=== PATIENT | male | born 1960 | race Caucasian/White ===

== ENCOUNTER 2017-04-11 21:12 | Emergency (ER) | payer OTHER ==
--- NOTE | 2017-04-11 22:08 | DIAGNOSTIC IMAGING REPORT ---
PROCEDURE: XR CERVICAL SPINE 2 OR 3 VIEW INDICATION: NECK TRAUMA/INJURY TECHNIQUE: Three views. COMPARISON: None. FINDINGS: Status post C4-5 anterior discectomy and fusion. Moderate degenerative changes of the C3-4, C4-5, C5-6 disc levels with anterior posterior osteophytes. No evidence of acute process or fracture. Left carotid vascular calcification. IMPRESSION: 1. Status post C4-5 anterior discectomy and fusion. 2. Moderate degenerative changes of the cervical spine. 3. Left carotid vascular calcification. 4. No evidence of acute process.
--- NOTE | 2017-04-11 22:29 | ED ORDER SUMMARY ---
..... Patient: FADUMO NOGUEIRA OrderSheet [facility] VisitID: [id number] [address] [place] [address] 57y, M Registration Date/Time: 04/11/2017 ORDER SHEET Weight: 104.3 kg (stated) Allergies: IV Contrast, Vicodin GENERAL ORDERS: Cervical Spine 2 or 3V Urgent (21:47 04/11/2017 Santos Morris) (21:53 Alexandria R.N.) Ice (21:47 04/11/2017 Santos Morris) (Ack 21:50 Alexandria R.N.) (21:53 Alexandria R.N.) MEDICATION ORDERS: IV FLUIDS: ORDER SHEET NOTES: [Electronically signed by Myra Dvais R.N. (22:37 04/11/2017)] [Electronically signed by Anjel Leigh Dr. (09:01 04/12/2017)] [Electronically locked/signed by Myra Davis R.N. (22:37 04/11/2017)]
--- NOTE | 2017-04-11 22:29 | ED NURSING NOTES ---
Clinical Report - Nurses [facility] [address] [place] [address] 04/11/2017 21:15 Patient: FADUMO NOGUEIRA TRIAGE Triage time 21:22. Chief Complaint: FALL while walking (pt states he fell through rotten boards on his deck at home and fell backwards, hitting his head). Alert. No acute distress. --21:31 Myra Davis R.N. 21:22 04/11/17. BP: 130/57. HR: 80. RR: 15 (regular and unlabored). O2 saturation: 94% on room air. Temp: 98.1 F (oral). Yanez-Larkin pain scale: 2/10. --21:31 Myra Davis R.N. Weight: 104.3 kg stated. Height/Length: 68 inches Per Patient. BMI: 35. --21:29 Myra Davis R.N. Medications Aspirin Oral (Tablet 81 mg) 1 tablet, q day. Gabapentin Oral (Capsule 300 mg) 4 tablets, 2x a day. HumuLIN N Subcutaneous 45 units q pm. Lisinopril Oral 40 mg, daily. MetFORMIN HCl Oral 1000 mg BID. Sertraline HCl Oral 100 mg, daily. TraZODone HCl Oral 50 mg, at bedtime. --21:26 Myra Davis R.N. Tamsulosin HCl Oral. --21:27 Myra Davis R.N. Atorvastatin Calcium Oral (Tablet 10 mg) 1/2 tablet, daily. --21:27 Myra Davis R.N. Pantoprazole Sodium Oral 40 mg, daily. --21:28 Myra Davis R.N. Percocet Oral (Tablet 5-325 mg) 4 tablets, daily as needed, neck pain. --21:29 Myra Davis R.N. Allergies IV Contrast. Vicodin. --21:26 Myra Davis R.N. History Arrived by private vehicle. Historian: patient. Accompanied by family. Primary physician (Marla ([facility])). This occurred today (at about 1930). 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 PAST MEDICAL HX: Tetanus status: up-to-date. Immunizations: up-to-date. SOCIAL HX: Never smoker. No alcohol use or drug use. NUTRITIONAL RISK ASSESSMENT: The nutritional risk assessment revealed no deficiencies. FUNCTIONAL ASSESSMENT: Functional assessment performed: independent with the activities of daily living; uses cane. --21:31 Myra Davis R.N. PHYSICAL ASSESSMENT Ambulatory to room. Patient gowned. GENERAL / NEURO / PSYCH: Alert. Oriented X 4. Appears in no acute distress. RESPIRATORY: Respirations not labored. SKIN: Skin is warm and dry. --21:31 Myra Davis R.N. NURSING PROGRESS NOTES Two patient identifiers checked. Call light placed in reach. Side rails up x 1. Bed placed in lowest position. Brakes of bed on. --21:31 Myra Davis R.N. Patient ready for evaluation- chart flagged. --21:31 Myra Davis R.N. 21:50. Cold pack applied to neck. --21:53 Myra Davis R.N. Patient transported to radiology by wheelchair with tech. --21:53 Myra Davis R.N. Patient returned from radiology by wheelchair with tech. --22:02 Myra Davis R.N. DISPOSITION / DISCHARGE Condition at departure: stable. No learning barriers present. Discharge instructions provided and reviewed with the patient. Patient verbalized understanding. Written instructions provided in Serbian. The patient was discharged home and accompanied by subassemblies wirer. He left the Emergency Department ambulatory and via private vehicle. Electric Crane Operator driving. --22:37 Myra Davis R.N. 22:36 04/11/17. BP: deferred. HR: deferred. RR: 15 (regular and unlabored). O2 saturation: deferred. Temp: deferred. Yanez-Larkin pain scale: 11/11. --22:37 Myra Davis R.N. Locked/Released at 04/11/2017 22:37 by Myra Davis R.N.
--- NOTE | 2017-04-11 22:29 | ED CLINICAL REPORT ---
Clinical Report - Physicians/Mid Levels [facility] [address] [place] [address] 04/11/2017 21:15 Patient: FADUMO NOGUEIRA Time Seen: 2140; initial patient contact. Arrived- By private vehicle. Historian- patient. HISTORY OF PRESENT ILLNESS Chief Complaint: INJURY TO HEAD and INJURY TO NECK. Location of injuries- head and neck. The injury occurred today. Fell (tripped while walking). Occurred at home. The patient complains of moderate pain. The patient sustained a blow to the head and complains of neck pain. No loss of consciousness or seizure. Not dazed. (no saddle anesthesia. No incontinence. No retention.). REVIEW OF SYSTEMS All systems otherwise negative, except as recorded above. PAST HISTORY See nurses notes. Tetanus immunization status is up-to-date. Medications: Percocet Oral (Tablet 5-325 mg) 4 tablets, daily as needed, neck pain. Pantoprazole Sodium Oral 40 mg, daily. Atorvastatin Calcium Oral (Tablet 10 mg) 1/2 tablet, daily. Tamsulosin HCl Oral. Aspirin Oral (Tablet 81 mg) 1 tablet, q day. Gabapentin Oral (Capsule 300 mg) 4 tablets, 2x a day. HumuLIN N Subcutaneous 45 units q pm. Lisinopril Oral 40 mg, daily. MetFORMIN HCl Oral 1000 mg BID. Sertraline HCl Oral 100 mg, daily. TraZODone HCl Oral 50 mg, at bedtime. Allergies: IV Contrast. Vicodin. SOCIAL HISTORY No alcohol use or drug use. No recent travel. Is a local resident. ADDITIONAL NOTES The nursing notes have been reviewed. PHYSICAL EXAM Vital Signs: 04/11/2017 21:22 BP: 130/57. HR: 80. RR: 15. O2 saturation: 94%. Temp: 98.1 F. Yanez-Larkin pain scale: 2/10. Blood pressure normal. Oxygen saturation normal. Appearance: Alert. No acute distress. Head: Head non-tender. No swelling of head. No Oneal's sign or raccoon eyes. Eyes: Pupils equal, round and reactive to light. Pupillary exam: Right pupil 3mm, round and reactive to light directly and consensually and with accommodation. Left pupil: 3mm, round and reactive to light directly and consensually and with accommodation. EOM intact. ENT: No dental injury. No hemotympanum. Pharynx normal. Neck: No decreased ROM or muscle spasm in the neck. No pain with movement of head/neck. Painless ROM. Neck non-tender. No vertebral tenderness. (no obvious surgical scar). CVS: Heart sounds normal. Pulses normal. Respiratory: Breath sounds normal. Chest nontender. Abdomen: Soft and nontender. No organomegaly. Back: No tenderness. ROM normal. No vertebral point tenderness. Skin: Skin intact. Skin warm and dry. Normal skin color. Normal skin turgor. Extremities: Normal inspection. Pelvis stable. Extremities atraumatic. Neuro: [place] Coma Scale: 15- eyes open spontaneously (4); best verbal response- oriented x 3 (5); best motor response- obeys commands (6). Oriented X 3. Mood/affect normal. Speech normal. No motor deficit. No sensory deficit. LABS, X-RAYS, AND EKG C-Spine X-rays: (PROCEDURE: XR CERVICAL SPINE 2 OR 3 VIEW INDICATION: NECK TRAUMA/INJURY TECHNIQUE: Three views. COMPARISON: None. FINDINGS: Status post C4-5 anterior discectomy and fusion. Moderate degenerative changes of the C3-4, C4-5, C5-6 disc levels with anterior posterior osteophytes. No evidence of acute process or fracture. Left carotid vascular calcification. IMPRESSION: 1. Status post C4-5 anterior discectomy and fusion. 2. Moderate degenerative changes of the cervical spine. 3. Left carotid vascular calcification.). The X-rays were independently viewed by me and interpreted by the radiologist. The X-rays were discussed with the radiologist (via pacs). PROGRESS AND PROCEDURES Course of Care: the patient is a 57-year-old male with past medical history significant for spinal fusion presented for evaluation of ground-level fall. Patient without any loss of consciousness. Do not feel CT scan of the head required at this time based on Nexus criteria. Patient is appropriate. patient is neuro intact. Patient will be evaluated for radiographs of the C-spine because of hardware. Pain medication has been offered. Patient is agreeable to Ice pack only. C-spine intact. Hardware intact. No other acute osseous abnormalities noted. Because of patient's negative radiographs and no neuro symptoms, feel the patient is stable outpatient candidate. Discussed with patient's workup here in the emergency department including diagnosis, home care, follow-up, and return precautions. All questions have been answered. The patient expressed understanding of these Instructions and was agreeable to them. Disposition: Discharged. Condition: good. CLINICAL IMPRESSION Acute neck pain associated with cervical sprain. 04/11/2017 21:22 BP: 130/57. HR: 80. RR: 15. O2 saturation: 94%. Temp: 98.1 F. Yanez-Larkin pain scale: 2/10. Blood pressure normal. Oxygen saturation normal. Single contusion to the head. INSTRUCTIONS Warnings: GENERAL WARNINGS: Return or contact your physician immediately if your condition worsens or changes unexpectedly, if not improving as expected, or if other problems arise. Specifically return if pain, vomiting, bleeding, breathing difficulty or fever. Your Current Medications: CONTINUE TAKING THE FOLLOWING MEDICATIONS: Aspirin Oral : Tablet 81 mg, 1 tablet q day. Atorvastatin Calcium Oral : Tablet 10 mg, 1/2 tablet daily. Gabapentin Oral : Capsule 300 mg, 4 tablets 2x a day. HumuLIN N Subcutaneous : 45 units q pm. Lisinopril Oral : 40 mg daily. MetFORMIN HCl Oral : 1000 mg BID. Pantoprazole Sodium Oral : 40 mg daily. Percocet Oral : Tablet 5-325 mg, 4 tablets daily, prn, neck pain. Sertraline HCl Oral : 100 mg daily. Tamsulosin HCl Oral. TraZODone HCl Oral : 50 mg at bedtime. OTC Medications: Motrin (available over the counter): take according to label instructions. Follow-up: Return to the emergency department as needed. Follow up with your doctor in three days. Reason for referral: recheck today's concerns. Summary of care provided to patient via paper. Screening today revealed the patient's blood pressure to be in the normal range. The patient should follow up with a primary care provider for blood pressure management. Understanding of the discharge instructions verbalized by patient. (Electronically signed by Anjel Leigh Dr. 04/12/2017 9:01)
--- NOTE | 2017-04-11 22:29 | ED ORDER SUMMARY ---
..... Patient: FADUMO NOGUEIRA OrderSheet [facility] VisitID: [id number] [address] [place] [address] 57y, M Registration Date/Time: 04/11/2017 ORDER SHEET Weight: 104.3 kg (stated) Allergies: IV Contrast, Vicodin GENERAL ORDERS: Cervical Spine 2 or 3V Urgent (21:47 04/11/2017 Santos Morris) (21:53 Alexandria R.N.) Ice (21:47 04/11/2017 Santos Morris) (Ack 21:50 Alexandria R.N.) (21:53 Alexandria R.N.) MEDICATION ORDERS: IV FLUIDS: ORDER SHEET NOTES: [Electronically signed by Myra Davis R.N. (22:37 04/11/2017)] [Electronically signed by Anjel Leigh Dr. (09:01 04/12/2017)] [Electronically locked/signed by Myra Davis R.N. (22:37 04/11/2017)]
--- NOTE | 2017-04-11 22:29 | ED NURSING NOTES ---
Clinical Report - Nurses [facility] [address] [place] [address] 04/11/2017 21:15 Patient: FADUMO NOGUEIRA TRIAGE Triage time 21:22. Chief Complaint: FALL while walking (pt states he fell through rotten boards on his deck at home and fell backwards, hitting his head). Alert. No acute distress. --21:31 Myra Davis R.N. 21:22 04/11/17. BP: 130/57. HR: 80. RR: 15 (regular and unlabored). O2 saturation: 94% on room air. Temp: 98.1 F (oral). Yanez-Larkin pain scale: 2/10. --21:31 Myra Davis R.N. Weight: 104.3 kg stated. Height/Length: 68 inches Per Patient. BMI: 35. --21:29 Myra Davis R.N. Medications Aspirin Oral (Tablet 81 mg) 1 tablet, q day. Gabapentin Oral (Capsule 300 mg) 4 tablets, 2x a day. HumuLIN N Subcutaneous 45 units q pm. Lisinopril Oral 40 mg, daily. MetFORMIN HCl Oral 1000 mg BID. Sertraline HCl Oral 100 mg, daily. TraZODone HCl Oral 50 mg, at bedtime. --21:26 Myra Davis R.N. Tamsulosin HCl Oral. --21:27 Myra Davis R.N. Atorvastatin Calcium Oral (Tablet 10 mg) 1/2 tablet, daily. --21:27 Myra Davis R.N. Pantoprazole Sodium Oral 40 mg, daily. --21:28 Myra Davis R.N. Percocet Oral (Tablet 5-325 mg) 4 tablets, daily as needed, neck pain. --21:29 Myra Davis R.N. Allergies IV Contrast. Vicodin. --21:26 Myra Davis R.N. History Arrived by private vehicle. Historian: patient. Accompanied by family. Primary physician (Marla ([facility])). This occurred today (at about 1930). 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 PAST MEDICAL HX: Tetanus status: up-to-date. Immunizations: up-to-date. SOCIAL HX: Never smoker. No alcohol use or drug use. NUTRITIONAL RISK ASSESSMENT: The nutritional risk assessment revealed no deficiencies. FUNCTIONAL ASSESSMENT: Functional assessment performed: independent with the activities of daily living; uses cane. --21:31 Myra Davis R.N. PHYSICAL ASSESSMENT Ambulatory to room. Patient gowned. GENERAL / NEURO / PSYCH: Alert. Oriented X 4. Appears in no acute distress. RESPIRATORY: Respirations not labored. SKIN: Skin is warm and dry. --21:31 Myra Davis R.N. NURSING PROGRESS NOTES Two patient identifiers checked. Call light placed in reach. Side rails up x 1. Bed placed in lowest position. Brakes of bed on. --21:31 Myra Davis R.N. Patient ready for evaluation- chart flagged. --21:31 Myra Davis R.N. 21:50. Cold pack applied to neck. --21:53 Myra Davis R.N. Patient transported to radiology by wheelchair with tech. --21:53 Myra Davis R.N. Patient returned from radiology by wheelchair with tech. --22:02 Myra Davis R.N. DISPOSITION / DISCHARGE Condition at departure: stable. No learning barriers present. Discharge instructions provided and reviewed with the patient. Patient verbalized understanding. Written instructions provided in Faroese. The patient was discharged home and accompanied by state federal relations deputy director. He left the Emergency Department ambulatory and via private vehicle. Recovery Manager driving. --22:37 Myra Davis R.N. 22:36 04/11/17. BP: deferred. HR: deferred. RR: 15 (regular and unlabored). O2 saturation: deferred. Temp: deferred. Yanez-Larkin pain scale: 11/11. --22:37 Myra Davis R.N. Locked/Released at 04/11/2017 22:37 by Myra Davis R.N.
--- NOTE | 2017-04-12 09:02 | ED MAR SUMMARY ---
..... Medication Administration Record [facility] [address], [place] [id number] Patient: FADUMO NOGUEIRA Visit ID: [id number] 57y, M Weight: 104.3 kg Height/Length: 68 in BMI: 35 ALLERGIES: IV Contrast, Vicodin
--- NOTE | 2017-04-12 09:02 | ED MAR SUMMARY ---
..... Medication Administration Record [facility] [address] [place], [place] [id number] Patient: FADUMO NOGUEIRA Visit ID: [id number] 57y, M Weight: 104.3 kg Height/Length: 68 in BMI: 35 ALLERGIES: IV Contrast, Vicodin
--- NOTE | 2017-04-12 09:02 | ED MED RECONCILIATION SUMMARY ---
Patient: FADUMO NOGUEIRA Medication Reconciliation Report [facility] VisitID: [id number] [address] [place] [address] 57y, M Registration Date/Time: 04/11/2017 Weight: 104.3 kg Height/Length: 68 in. BMI: 35.0 ALLERGIES: IV Contrast, Vicodin The patient's Home Medications are listed below: CONTINUE TAKING THE FOLLOWING MEDICATIONS: Aspirin Oral (81 mg) 1 tablet, q day Atorvastatin Calcium Oral (10 mg) 1/2 tablet, daily Gabapentin Oral (300 mg) 4 tablets, 2x a day HumuLIN N Subcutaneous 45 units q pm Lisinopril Oral 40 mg, daily MetFORMIN HCl Oral 1000 mg BID Pantoprazole Sodium Oral 40 mg, daily Percocet Oral (5-325 mg) 4 tablets, daily, neck pain Sertraline HCl Oral 100 mg, daily Tamsulosin HCl Oral TraZODone HCl Oral 50 mg, at bedtime The source(s) of the original Home Medication information: Not obtained. The following Medications were given to the patient in the Emergency Department: None. The following Medications were prescribed to the patient: Motrin (available over the counter): take according to label instructions. -- Anjel Leigh Dr.
--- NOTE | 2017-04-12 09:02 | ED DISCHARGE INSTRUCTIONS ---
Patient: FADUMO NOGUEIRA General Instructions [facility] VisitID: [id number] [place] [address] 57y, M Registration Date/Time: 04/11/2017 Acute neck pain associated with cervical sprain. 04/11/2017 21:22 BP: 130/57. HR: 80. RR: 15. O2 saturation: 94%. Temp: 98.1 F. Yanez-Larkin pain scale: 2/10. Blood pressure normal. Oxygen saturation normal. Single contusion to the head. INSTRUCTIONS Warnings: GENERAL WARNINGS: Return or contact your physician immediately if your condition worsens or changes unexpectedly, if not improving as expected, or if other problems arise. Specifically return if pain, vomiting, bleeding, breathing difficulty or fever. Your Current Medications: CONTINUE TAKING THE FOLLOWING MEDICATIONS: Aspirin Oral : Tablet 81 mg, 1 tablet q day. Atorvastatin Calcium Oral : Tablet 10 mg, 1/2 tablet daily. Gabapentin Oral : Capsule 300 mg, 4 tablets 2x a day. HumuLIN N Subcutaneous : 45 units q pm. Lisinopril Oral : 40 mg daily. MetFORMIN HCl Oral : 1000 mg BID. Pantoprazole Sodium Oral : 40 mg daily. Percocet Oral : Tablet 5-325 mg, 4 tablets daily, prn, neck pain. Sertraline HCl Oral : 100 mg daily. Tamsulosin HCl Oral. TraZODone HCl Oral : 50 mg at bedtime. OTC Medications: Motrin (available over the counter): take according to label instructions. Follow-up: Return to the emergency department as needed. Follow up with your doctor in three days. Reason for referral: recheck today's concerns. Summary of care provided to patient via paper. Screening today revealed the patient's blood pressure to be in the normal range. The patient should follow up with a primary care provider for blood pressure management. Understanding of the discharge instructions verbalized by patient. ADDITIONAL INFORMATION Contusion,Soft Tissue You have a CONTUSION, which is a bruise with swelling and some bleeding under the skin. There are no broken bones. This injury takes a few days to a few weeks to heal. Home Care: 1) Keep the injured part elevated to reduce pain and swelling. This is especially important during the first 48 hours. 2) Make an ice pack (ice cubes in a plastic bag, wrapped in a towel) and apply for 20 minutes every 1-2 hours the first day. Continue this 3-4 times a day until the pain and swelling goes away. 3) You may use acetaminophen (Tylenol) or ibuprofen (Motrin, Advil) to control pain, unless another pain medicine was prescribed. [ NOTE : If you have chronic liver or kidney disease or ever had a stomach ulcer or GI bleeding, talk with your doctor before using these medicines.] Follow Up with your doctor or this facility if you are not improving within the next THREE days. [NOTE: If X-rays were taken, they will be reviewed by a radiologist. You will be notified of any new findings that may affect your care.] Get Prompt Medical Attention if any of the following occur: -- Pain or swelling increases -- Injured arm or leg becomes cold, blue, numb or tingly -- Redness, warmth or drainage from the skin Neck Sprain Or Strain A sudden force that causes turning or bending of the neck (such as in a car accident) can stretch or tear muscles (strain) and ligaments (sprain) and cause neck pain. Sometimes neck pain occurs after a simple awkward movement. In either case, muscle spasm is commonly present and contributes to the pain. Unless you had a forceful physical injury (for example, a car accident or fall), X-rays are usually not ordered for the initial evaluation of neck pain. If pain continues and dose not respond to medical treatment, X-rays and other tests may be performed at a later time. Home care The following guidelines will help you care for your injury at home: You may feel more soreness and spasm the first few days after the injury. Reduce your activity level until symptoms begin to improve. When lying down, use a comfortable pillow that supports the head and keeps the spine in a neutral position. The position of the head should not be tilted forward or backward. Use ice packs (ice in a plastic bag, wrapped in a towel) to treat acute pain. Apply for 20 minutes every 24 hours during the first two days. Then, begin local heat (hot shower, hot bath or heating pad) andmassageto reduce muscle spasm. Some patients feel best alternating hot and cold treatments, or just staying with one method only. Do what feels the best to you and gives the most relief. You may use acetaminophen or ibuprofen to control pain, unless another pain medicine was prescribed.If you have chronic liver or kidney disease or ever had a stomach ulcer or GI bleeding, talk with your doctor before using these medicines. Follow-up care Follow up with your physician or this facility if your symptoms do not show signs of improvement. Physical therapy may be needed. If you had X-rays today, they didnt show any broken bones, breaks, or fractures. Sometimes fractures dont show up on the first X-ray. Bruises and sprains can sometimes hurt as much as a fracture. These injuries can take time to heal completely. If your symptoms dont improve or they get worse, talk with your doctor. You may need a repeat X-ray. When to seek medical care Get prompt medical attention if any of the following occur: Pain becomes worse or spreads into your arms Weakness or numbness in one or both arms You have been given the following additional information: Contusion, Soft Tissue Neck Sprain/Strain (Electronically signed by Anjel Leigh Dr. 04/12/2017 9:01)
--- NOTE | 2017-04-12 09:02 | ED MED RECONCILIATION SUMMARY ---
Patient: FADUMO NOGUEIRA Medication Reconciliation Report [facility] VisitID: [id number] [address] [place] [address] 57y, M Registration Date/Time: 04/11/2017 Weight: 104.3 kg Height/Length: 68 in. BMI: 35.0 ALLERGIES: IV Contrast, Vicodin The patient's Home Medications are listed below: CONTINUE TAKING THE FOLLOWING MEDICATIONS: Aspirin Oral (81 mg) 1 tablet, q day Atorvastatin Calcium Oral (10 mg) 1/2 tablet, daily Gabapentin Oral (300 mg) 4 tablets, 2x a day HumuLIN N Subcutaneous 45 units q pm Lisinopril Oral 40 mg, daily MetFORMIN HCl Oral 1000 mg BID Pantoprazole Sodium Oral 40 mg, daily Percocet Oral (5-325 mg) 4 tablets, daily, neck pain Sertraline HCl Oral 100 mg, daily Tamsulosin HCl Oral TraZODone HCl Oral 50 mg, at bedtime The source(s) of the original Home Medication information: Not obtained. The following Medications were given to the patient in the Emergency Department: None. The following Medications were prescribed to the patient: Motrin (available over the counter): take according to label instructions. -- Anjel Leigh Dr.
== END 2017-04-11 22:30 | disposition home or self-care (01) ==
LOC: ED SRH 21:12
DX: S13.4XXA Sprain of ligaments of cervical spine, initial encounter (principal); S00.93XA Contusion of unspecified part of head, initial encounter; W01.0XXA Fall on same level from slipping, tripping and stumbling without subsequent striking against object, initial encounter; Y93.01 Activity, walking, marching and hiking; Y92.019 Unspecified place in single-family (private) house as the place of occurrence of the external cause; Y99.8 Other external cause status; Z79.82 Long term (current) use of aspirin; Z79.4 Long term (current) use of insulin; Z79.84 Long term (current) use of oral hypoglycemic drugs; Z79.899 Other long term (current) drug therapy